=== PATIENT | male | born 1945 ===

== ENCOUNTER 2017-04-16 09:15 | Emergency (ER) | payer MEDICARE, MEDICAID ==
[2017-04-16 20:34] LABS: INR 1.2
[2017-04-16 20:37] LABS: BASO # 0.2 K/uL (0.0-0.2); BASO % 1.3 % (0.0-2.0); EOS % 0.2 % (0.0-4.0); LYMPH # 8.5 K/uL (1.0-4.3); LYMPH % 66.4 % (20.0-40.0); MEAN CELL VOLUME 83.7 fL (80.0-94.0); MEAN CORPUSCULAR HEMOGLOBIN 26.8 pg (27.0-31.0); MEAN PLATELET VOLUME 8.3 fL (7.2-11.7); MONO # 0.7 K/uL (0.0-0.8); MONO % 5.5 % (0.0-10.0); NRBC % 0.2 % (0.0-2.0); RED CELL DISTRIBUTION WIDTH 16.2 % (11.5-14.5); WHITE BLOOD COUNT 12.9 K/uL (4.8-10.8)
[2017-04-16 21:23] LABS: ALB/GLOB RATIO 1.7 (1.0-2.1); ALKALINE PHOSPHATASE 61 U/L (38-126); ALT/SGPT 24 U/L (21-72); AST/SGOT 32 U/L (17-59); BILIRUBIN,TOTAL 1.1 mg/dL (0.2-1.3); BLOOD UREA NITROGEN 15 mg/dL (9-20); CALCIUM 8.4 mg/dl (8.6-10.4); CARBON DIOXIDE 29 mmol/L (22-30); CHLORIDE 99 mmol/L (98-107); GFR AFRICAN-AMERICAN > 60; GLUCOSE,RANDOM 98 mg/dL (75-110); POTASSIUM 3.9 mmol/L (3.6-5.2); SODIUM 138 mmol/L (132-148); TOTAL PROTEIN 6.6 g/dL (6.3-8.3)
--- NOTE | 2017-04-17 08:50 | CT ---
PROCEDURE: CT scan neck 04/16/2017 COMPARISON: No prior TECHNIQUE: CT of the neck performed the following intravenous injection of approximately 100 cc Visipaque 320 contrast. . Coronal and sagittal reformats generated. Radiation dose: DLP 380.88 mGy-cm FINDINGS: The current study reveals multiple enlarged bilateral cervical lymph nodes within the jugulodigastric, posterior cervical spaces, the submandibular and submental regions. The largest right-sided submandibular lymph node measures approximately 3.5 cm and on the left approximately 3.3 cm. Posterior cervical space lymph nodes on the left measuring range up to approximately 2.6 cm and on the right. Lymph nodes extend into the supraclavicular region. Findings are of uncertain etiology though may represent sequela of lymphoma/leukemia. The possibility of metastatic adenopathy cannot be completely excluded. There is also enlargement of left posterolateral oral pharyngeal soft tissues possibly involving the left palatine tonsil ; while this could represent additional adenopathy the possibility of a primary tumor in this location must be excluded. . Free margin of the epiglottis unremarkable. Vallecular appears relatively symmetric as do the aryepiglottic folds and pyriform sinuses. True vocal cords are symmetric. Parotid and submandibular glands appear grossly unremarkable so far as can be seen. Cervical vasculature is patent. Evaluation of the thyroid gland is somewhat limited due to crossing streak and beam hardening artifact however at least 2 low-attenuation lesions right lobe thyroid gland. Thyroid ultrasound followup suggested. There are lytic changes seen in the left anterior body of the mandible possibly due to radicular cystic changes/dental caries. Clinical correlation recommended. Moderate mucosal thickening left maxillary sinus with minor mucosal thickening right maxillary sinus. Lung apices are clear. Multilevel degenerative spondylosis of the cervical spine. Impression: Significant bilateral cervical adenopathy with multiple small lymph nodes in the supraclavicular regions. Rule out lymphoma/leukemia. The possibility of metastatic adenopathy not excluded. There is also soft tissue masslike lesion in the left wall of the left posterolateral oral pharyngeal region possibly involving the palatine tonsil. Rule out primary malignancy versus adenopathy in this location.
== END 2017-04-16 16:30 | disposition left against medical advice (07) ==
LOC: C.ER 09:15
DX: R22.1 Localized swelling, mass and lump, neck (principal); R59.9 Enlarged lymph nodes, unspecified
CPT/HCPCS: 70491; 80053; 85025; 85610; 85730; 99281; Q9967

== ENCOUNTER 2017-11-12 19:31 | Emergency (ER) | payer MEDICARE, MEDICAID ==
[2017-11-12 19:33] VITALS: BMI 24.2
[2017-11-12 19:41] VITALS: BP 132/70; PULSE 89; RESP 16; TEMP 97.8; O2SAT 100
--- NOTE | 2017-11-12 19:54 | C.PDOC ---
Time Seen by Provider: 11/12/17 19:42 Chief Complaint (Nursing): Headache Past Medical History Vital Signs: Last Vital Signs Temp 97.8 F 11/12/17 19:38 Pulse 89 11/12/17 19:38 Resp 16 11/12/17 19:38 BP 132/70 11/12/17 19:38 Pulse Ox 100 11/12/17 19:38 - Medical History PMH: HTN Denies: Chronic Kidney Disease - [facility] Procedures COMPUTERIZED TOMOGRAPHY (CT SCAN) OF CHEST, ABD & PELVIS (10/26/17) CONTACT RADIATION OF PERIPHERAL NERVE (11/04/17) EXCISION OF AORTIC LYMPHATIC, PERCUTANEOUS APPROACH, DIAGN (10/26/17) EXTRACTION OF ILIAC BONE MARROW, PERC APPROACH, DIAGN (10/26/17) INJECT/INFUSE NEC (11/10/05) INSERT INFUSION DEV IN L INT JUGULAR VEIN, PERC (10/26/17) INSERT VAD RESERVOIR IN CHEST SUBCU/FASCIA, PERC (10/26/17) PHERESIS OF PLATELETS, SINGLE (10/26/17) TRANSFUSE NONAUT RED BLOOD CELLS IN PERIPH VEIN, PERC (10/26/17) ULTRASONOGRAPHY OF LEFT JUGULAR VEINS, GUIDANCE (10/26/17) - Social History Hx Alcohol Use: No Hx Substance Use: No ED Course And Treatment O2 Sat by Pulse Oximetry: 100 Disposition - Disposition Disposition Time: 20:00 Condition: STABLE Additional Instructions: follow up with your oncologist as directed. Instructions: Pharyngitis (ED) Forms: [facility] (Tajik), Gen Discharge Inst Citizen Of [place] - Clinical Impression Clinical Impression: Pharyngitis
--- NOTE | 2017-11-12 19:57 | C.PDOC ---
History Of Present Illness 72 year old male with Hx of leukemia presents to the ED c/o throat pain, ear pain and neck pain. Patient reports he was seen previously in [facility] where he was being treated for his leukemia. Patient denies fever, nausea, abdominal pain, vomit, chills, back pain, weakness, numbness. Time Seen by Provider: 11/12/17 19:42 Chief Complaint (Nursing): Headache History Per: Patient History/Exam Limitations: no limitations Onset/Duration Of Symptoms: Days Current Symptoms Are (Timing): Gone Preceeding Symptoms: None Recent travel outside of the [place]: No Additional History Per: Patient Past Medical History Reviewed: Historical Data, Nursing Documentation, Vital Signs Vital Signs: Last Vital Signs Temp 97.8 F 11/12/17 19:38 Pulse 89 11/12/17 19:38 Resp 16 11/12/17 19:38 BP 132/70 11/12/17 19:38 Pulse Ox 100 11/12/17 20:01 - Medical History PMH: HTN Denies: Chronic Kidney Disease Surgical History: No Surg Hx - [facility] Procedures COMPUTERIZED TOMOGRAPHY (CT SCAN) OF CHEST, ABD & PELVIS (10/26/17) CONTACT RADIATION OF PERIPHERAL NERVE (11/04/17) EXCISION OF AORTIC LYMPHATIC, PERCUTANEOUS APPROACH, DIAGN (10/26/17) EXTRACTION OF ILIAC BONE MARROW, PERC APPROACH, DIAGN (10/26/17) INJECT/INFUSE NEC (11/10/05) INSERT INFUSION DEV IN L INT JUGULAR VEIN, PERC (10/26/17) INSERT VAD RESERVOIR IN CHEST SUBCU/FASCIA, PERC (10/26/17) PHERESIS OF PLATELETS, SINGLE (11/13/17) TRANSFUSE NONAUT RED BLOOD CELLS IN PERIPH VEIN, PERC (10/26/17) ULTRASONOGRAPHY OF LEFT JUGULAR VEINS, GUIDANCE (10/26/17) Family History: States: Unknown Family Hx - Social History Hx Alcohol Use: No Hx Substance Use: No Review Of Systems Constitutional: Negative for: Fever, Chills ENT: Positive for: Ear Pain, Throat Pain Cardiovascular: Negative for: Chest Pain, Palpitations Respiratory: Negative for: Cough, Shortness of Breath Gastrointestinal: Negative for: Nausea, Vomiting, Abdominal Pain Musculoskeletal: Positive for: Neck Pain Skin: Negative for: Rash Neurological: Negative for: Weakness, Numbness Physical Exam - Physical Exam Appears: Non-toxic, No Acute Distress Skin: Normal Color, Warm, Dry Head: Atraumatic, Normacephalic Nose: No Discharge, No Deformity Oral Mucosa: Moist Neck: Normal ROM, Supple Lymphatic: Adenopathy (Cervical L>R) Chest: Symmetrical, Other (Right upper subcutaneous portacath for chemo) Cardiovascular: Rhythm Regular, No Murmur Respiratory: Normal Breath Sounds, No Rales, No Rhonchi, No Wheezing Gastrointestinal/Abdominal: Soft, No Tenderness, No Distention Extremity: Normal ROM, No Pedal Edema, No Calf Tenderness, No Swelling Neurological/Psych: Oriented x3, Normal Speech, Normal Cognition Gait: Steady ED Course And Treatment O2 Sat by Pulse Oximetry: 100 (On RA) Pulse Ox Interpretation: Normal Medical Decision Making Medical Decision Making: Impression : throat, ear, neck pain Plan: * Amoxicillin 500 mg PO Disposition Doctor Will See Patient In The: Office - Disposition Disposition: HOME/ ROUTINE Disposition Time: 23:00 Condition: STABLE Additional Instructions: follow up with your oncologist as directed. Instructions: Pharyngitis (ED) Forms: Gen Discharge Inst Slovak, [facility] (I[place]ic) - Clinical Impression Clinical Impression: Pharyngitis - Scribe Statement The provider has reviewed the documentation as recorded by the Scribe Domingo Lugo All medical record entries made by the Scribe were at my direction and personally dictated by me. I have reviewed the chart and agree that the record accurately reflects my personal performance of the history, physical exam, medical decision making, and the department course for this patient. I have also personally directed, reviewed, and agree with the discharge instructions and disposition.
== END 2017-11-12 20:22 | disposition home or self-care (01) ==
LOC: C.ER 19:31
DX: J02.9 Acute pharyngitis, unspecified (principal); I10 Essential (primary) hypertension